=== PATIENT | male | born 1980 | race Caucasian/White ===

== ENCOUNTER 2023-04-28 00:45 | Inpatient (IN) | payer BC, SELFPAY ==
[2023-04-28] VITALS (40 sets, daily range): BP systolic 121–164; BP diastolic 80–110; PULSE 75–102; RESP 14–22; TEMP 36.6–37.7; O2SAT 93–100; BMI 29.5
--- NOTE | ~2023-04-28 | CT_ITS ---
EXAMINATION: CT abdomen pelvis w con DATE: 04/28/2023 02:55 INDICATION: Abdominal pain. Right lower abdomen pain. TECHNIQUE: Computed tomography (CT) of the abdomen and pelvis was performed with 100 cc Omnipaque 350 intravenous contrast. The dose-length product was 927.32 mGy-cm. Automated exposure control and iter ative reconstruction technique were employed. COMPARISON: None. FINDINGS: Lung bases are unremarkable. Heart size normal. No significant pleural or pericardial effus ion. No significant vascular abnormality. No lymphadenopathy. The appendix is thickened measuring 9 mm, suspicious for appendicitis. No evidence for perforation or abscess. The liver, spleen, pancreas, adrenal glands and kidneys are unremarkable. Gallbladder is pr esent. There is thickening of the sigmoid colon without evidence for mild surrounding inflammatory ch mary. There is also pericolonic fluid. These findings are suspicious for diverticulitis with peridive rticular abscess. There is a surgical anastomosis at the ileocolic junction. The liver, spleen, pancreas, adrenal glands and kidneys are unremarkable. Gallbladder is present. No acute osseous abnormality. No free air. IMPRESSION: 1. Acute sigmoid diverticulitis with peridiverticular abscess. 2: Possible acute appendicitis. Reviewed, dictated and finalized at location A.
--- NOTE | ~2023-04-28 | CT_ITS ---
EXAMINATION: CT brain wo con DATE: 05/02/2023 14:22 INDICATION: Worst headache of his life TECHNIQUE: Computed tomography (CT) of the head was performed without intravenous contrast. Sagittal and coronal reconstructions were performed. The mA was adjusted according to patient size. Iterative reconstruction technique was employed. The dose-length product was 681.00 mGy-cm. COMPARISON: None FINDINGS: No acute intracranial hemorrhage, acute infarction or abnormal extra axial fluid collection. Ventricl es are normal and symmetric. No mass/mass effect. Small mucous retention cyst at the right sphenoid s inus. The orbits and mastoid air cells are normal. IMPRESSION: 1. Normal brain. No acute intracranial process. Reviewed, dictated and finalized at location A.
[2023-04-28 01:13] LABS: Appearance Urine Clear (Clear); Basophils Percent Auto 0.6 % (0.2-1.2); Bilirubin Urine Negative (Negative); Blood Urine Negative (Negative); Color Urine Yellow (Yellow); Eosinophils Absolute Auto 0.2 K/mm3 (0-0.3); Eosinophils Percent Auto 2.8 % (0-4.4); Glucose Urine UA Negative (Negative); Hematocrit 52.6 % (42.0-52.0); Hemoglobin 16.7 g/dL (14.0-18.0); Immature Granulocyte Absolute 0.01 K/mm3 (0.00-0.031); Immature Granulocyte Percent A 0.2 % (0-0.5); Ketones Urine Negative (Negative); Leukocyte Esterase Ur Negative LEU/UL (Negative); Lymphocytes Percent Auto 23.6 % (18.3-44.2); Mean Corpuscular HGB Conc 31.7 g/dl (32-36); Mean Platelet Volume 9.9 fl (7.4-10.4); Monocytes Percent Auto 15.4 % (2.6-8.5); Neutrophils Absolute Auto 3.6 K/mm3 (1.3-6.7); Neutrophils Percent Auto 57.4 % (45.5-73.1); Nitrate Urine Negative (Negative); Platelet Count Result 204 k/mm3 (150-375); Protein Urine Negative (Negative); Red Blood Count 6.19 M/mm3 (4.6-6.20); Red Cell Distribution Width 13.5 % (11.5-14.5); Specific Grav Ur 1.016 (1.001-1.035); Urobilinogen Urine 0.2 mg/dL (<2.0); White Blood Count 6.4 K/mm3 (4.5-10.0); pH Urine 5.5 (5.0-9.0)
[2023-04-28 01:28] LABS: Alanine Aminotransferase 30 U/L (6-50); Albumin Level 4.6 g/dL (3.5-5.1); Alkaline Phosphatase 68 U/L (38-126); Anion Gap 7 mmol/L (8-16); Aspartate Amino Transferase 37 U/L (17-59); Bilirubin,Total 1.1 mg/dL (0.2-1.3); Blood Urea Nitrogen 21 mg/dL (9-20); Calcium 9.4 mg/dL (8.4-10.2); Carbon Dioxide 30 mmol/L (22-30); Chloride 100 mmol/L (98-107); Estimated CRCL calculation 78 ml/min; Estimated Glomerular Filt Rate 60; Glucose 106 mg/dL (65-110); Lipase 187 U/L (23-300); Potassium 4.1 mmol/L (3.4-5.0); Sodium 137 mmol/L (137-145)
[2023-04-28 01:30] LABS: Add Urine Microscopic? NO
[2023-04-28] MEDS: MORPHINE SULFATE (*CRX) 4 MG/ML INJ IV PUSH ×2 (01:47→11:26)
[2023-04-28] MEDS: SODIUM CHLORIDE 0.9% IV 1,000 ML 999 ML IV CONT (01:47)
[2023-04-28] MEDS: ONDANSETRON INJ 4 MG/2 ML VIAL IV PUSH ×2 (01:47→12:25)
--- NOTE | 2023-04-28 01:57 | ED.GENADULT ---
HPI - General Adult General Chief complaint: Abdominal Pain Stated complaint: abdominal pain Time Seen by Provider: 04/28/23 01:28 History of Present Illness HPI narrative: Patient 43-year-old gentleman who presents the emergency department with chief complaint of abdominal pain. Patient reports he has prior history of diverticulitis reports that he started having pain in the left lower quadrant that is now radiated to the suprapubic area. The patient states the pain is sharp reports he is concerned that he may be developing diverticulitis. The patient does report that he has had a bowel resection for diverticulitis but has had diverticulitis since the surgery. Related Data Allergies Allergy/AdvReac Type Severity Reaction Status Date / Time No Known Allergies Allergy Verified 04/28/23 04:06 Review of Systems Review of Systems: A 10 system review of systems was completed on the patient and is negative except for what is stated in the HPI. Nursing and ancillary documentation was reviewed. Exam Narrative: GENERAL: Well-appearing, well-nourished, and in moderate acute pain distress. HEAD: Normocephalic, atraumatic. EYES: PERRLA and EOMI. ENT: Nares clear, no rhinorrhea or epistaxis. Mucous membranes moist. NECK: Supple. CHEST: Clear to auscultation. No respiratory distress. HEART: Regular rate and rhythm. No murmur heard. Normal peripheral pulses. ABDOMEN: Soft, tenderness to palpation throughout the abdomen worse in the left lower quadrant and suprapubic., nondistended, normal active bowel sounds. EXTREMITIES: Normal range of motion. No edema. SKIN: Warm, dry, no rash. NEURO: No focal deficits. Alert and oriented x3. PSYCH: Normal mood and affect. Course Vital Signs Vital signs: Vital Signs Temperature 36.6 C 04/28/23 00:47 Pulse Rate 102 H 04/28/23 00:47 Respiratory Rate 16 04/28/23 00:47 Blood Pressure 164/100 H 04/28/23 00:47 Pulse Oximetry 100 04/28/23 00:47 Oxygen Delivery Room Air 04/28/23 00:47 Temperature 36.6 C 04/28/23 00:47 Pulse Rate 87 04/28/23 06:01 Respiratory Rate 18 04/28/23 06:01 Blood Pressure 145/93 H 04/28/23 06:01 Pulse Oximetry 93 04/28/23 06:01 Oxygen Delivery Room Air 04/28/23 00:47 Medical Decision Making Vital Signs Vital Signs: Vital Signs Temperature 36.6 C 04/28/23 00:47 Pulse Rate 102 H 04/28/23 00:47 Respiratory Rate 16 04/28/23 00:47 Blood Pressure 164/100 H 04/28/23 00:47 Pulse Oximetry 100 04/28/23 00:47 Oxygen Delivery Room Air 04/28/23 00:47 Temperature 36.6 C 04/28/23 00:47 Pulse Rate 87 04/28/23 06:01 Respiratory Rate 18 04/28/23 06:01 Blood Pressure 145/93 H 04/28/23 06:01 Pulse Oximetry 93 04/28/23 06:01 Oxygen Delivery Room Air 04/28/23 00:47 Lab Data 04/28/23 01:03 04/28/23 01:03 Labs: Lab Results 04/28/23 Range/Units 01:03 WBC 6.4 (4.5-10.0) K/mm3 RBC 6.19 (4.6-6.20) M/mm3 Hgb 16.7 (14.0-18.0) g/dL Hct 52.6 H (42.0-52.0) % MCV 85.0 (80-100) fl MCH 27.0 (26-34) pg MCHC 31.7 L (32-36) g/dl RDW 13.5 (11.5-14.5) % Plt Count 204 (150-375) k/mm3 MPV 9.9 (7.4-10.4) fl Immature Gran % (Auto) 0.2 (0-0.5) % Neut % (Auto) 57.4 (45.5-73.1) % Lymph % (Auto) 23.6 (18.3-44.2) % [place] % (Auto) 15.4 H (2.6-8.5) % Eos % (Auto) 2.8 (0-4.4) % Baso % (Auto) 0.6 (0.2-1.2) % Lymph # (Auto) 1.50 (0.9-3.2) K/mm3 [place] # (Auto) 1.0 H (0.1-0.6) K/mm3 Eos # (Auto) 0.2 (0-0.3) K/mm3 Baso # (Auto) 0.0 (0.0-0.1) K/mm3 Abs Immat Gran (auto) 0.01 (0.00-0.031) K/mm3 Absolute Neuts (auto) 3.6 (1.3-6.7) K/mm3 Absolute Nucleated RBC 0.0 (0.0-0.012) K/mm3 Nucleated RBC % 0.0 (0.0-0.2) % Sodium 137 (137-145) mmol/L Potassium 4.1 (3.4-5.0) mmol/L Chloride 100 (98-107) mmol/L Carbon Dioxide 30 (22-30) mmol/L Anion Gap 7 L (8-16) mmol/L BUN 21 H (9-20) mg/dL Crea
[2023-04-28] MEDS: ACETAMINOPHEN 500 MG TABLET 1000 MG PO (06:41)
--- NOTE | 2023-04-28 06:44 | PC.NURSE ---
Pt c/o headache 8/10 at this time. Ok per Dr England to give Tylenol. Pt agreeable with plan. Reports abd pain now 5/10, unless abd touched then is 8/10
[2023-04-28] MEDS: PIPERACILLN/TAZ 3.375GM/NS50ML 3.375 GM/50 ML BAG IVPB ×3 (07:01→17:38)
--- NOTE | 2023-04-28 07:10 | PC.NURSE ---
Report to FLOR Carter
[2023-04-28] MEDS: metroNIDAZOLE 500 MG/ISO 100ML 500 MG/100 ML BAG 100 MG IVPB ×3 (07:27→17:38)
[2023-04-28] MEDS: SODIUM CHLORIDE 0.9% IV 1,000 ML 125 ML IV CONT (09:47)
--- NOTE | 2023-04-28 12:36 | PM.IMHP ---
H&P: HPI History of Present Illness Date/Time: 04/28/23 12:36 Chief Complaint: Abdominal pain Narrative: Patient 43-year-old gentleman who presents the emergency department with chief complaint of abdominal pain.? Patient reports he has prior history of diverticulitis reports that he started having pain in the left lower quadrant that is now radiated to the right lower quadrant and since this a.m. has been diffusely present. Was feeling feverish but no recorded temperature. Reports chills and some rigors he also had some nausea and vomiting yesterday. He has a history of sigmoid diverticulitis and had surgery in June 2022 Review of Systems Review of Systems: - CONSTITUTIONAL: Denies weight loss, fever and reports chills. - HEENT: Denies changes in vision and hearing - RESPIRATORY: Denies SOB and cough. - CV: Denies palpitations and CP. - GI: See HPI - : Denies dysuria and urinary frequency. - MSK: Denies myalgia and joint pain. - SKIN: Denies rash and pruritus. - NEUROLOGICAL: Denies headache and syncope. - PSYCHIATRIC: Denies recent changes in mood. Denies anxiety and depression. [facility] Social History Social History Smoking status: Former smoker Alcohol intake: never Substance use: never Lack of Transportation: No Lack of Food: Never True Current Housing: I Have Housing Concerned About Future Housing: No Difficulty Paying Gas/Electric Bills: No Difficulty Paying for Meds: No Currently Unemployed: No Education: High School Diploma/GED Difficulty w/ Childcare or Family Care: No Spiritual care concerns: No Meds Home Medications and Allergies Home Medications Medication Instructions Recorded Confirmed Type acetaminophen 500 mg tablet (Pain 500 mg PO PRN PRN Pain (Scale 04/28/23 04/28/23 History Reliever Extra Strength Score 1-3) (acetaminophen)) ibuprofen 600 mg tablet 600 mg PO PRN PRN Pain (Scale 04/28/23 04/28/23 History Score 1-3) meloxicam 15 mg tablet 15 mg PO DAILY 04/28/23 04/28/23 History omeprazole 40 mg capsule,delayed 40 mg PO DAILY 04/28/23 04/28/23 History release Allergies Allergy/AdvReac Type Severity Reaction Status Date / Time No Known Allergies Allergy Verified 04/28/23 04:06 Vital Signs Vital Signs - 24 hr 04/28/23 00:47 04/28/23 01:52 04/28/23 01:53 Temperature 97.9 F Pulse Rate 102 H Respiratory Rate 16 Blood Pressure 164/100 H Pulse Oximetry 100 98 99 Oxygen Delivery Room Air 04/28/23 02:00 04/28/23 02:01 04/28/23 02:02 Temperature Pulse Rate Respiratory Rate 22 H Blood Pressure 134/86 Pulse Oximetry 94 97 96 Oxygen Delivery 04/28/23 02:15 04/28/23 02:16 04/28/23 02:31 Temperature Pulse Rate Respiratory Rate Blood Pressure 147/93 H 156/110 H Pulse Oximetry 99 97 Oxygen Delivery 04/28/23 02:55 04/28/23 03:00 04/28/23 03:15 Temperature Pulse Rate Respiratory Rate Blood Pressure Pulse Oximetry 97 98 95 Oxygen Delivery 04/28/23 03:20 04/28/23 03:31 04/28/23 03:39 Temperature Pulse Rate Respiratory Rate Blood Pressure 138/100 H 158/101 H Pulse Oximetry 96 Oxygen Delivery 04/28/23 03:45 04/28/23 03:46 04/28/23 04:00 Temperature Pulse Rate Respiratory Rate Blood Pressure 156/99 H Pulse Oximetry 95 95 94 Oxygen Delivery 04/28/23 04:01 04/28/23 04:15 04/28/23 04:16 Temperature Pulse Rate Respiratory Rate Blood Pressure 155/99 H 152/92 H Pulse Oximetry 95 95 96 Oxygen Delivery 04/28/23 04:30 04/28/23 04:31 04/28/23 04:45 Temperature Pulse Rate Respiratory Rate Blood Pressure 149/94 H Pulse Oximetry 97 96 96 Oxygen Delivery 04/28/23 04:46 04/28/23 04:48 04/28/23 05:00 Temperature Pulse Rate 75 Respiratory Rate 14 Blood Pressure 153/95 H Pulse Oximetry 96 94 97 Oxyg
[2023-04-28] MEDS: PANTOPRAZOLE SODIUM IV 40 MG VIAL IV PUSH (12:52)
[2023-04-28] MEDS: HYDROmorphone HCL INJ (*CRX) 1 MG/ML SYR IV PUSH ×2 (12:52→17:38)
[2023-04-28 13:19] LABS: Basophils Percent Auto 0.2 % (0.2-1.2); Eosinophils Percent Auto 0.2 % (0-4.4); Hematocrit 52.2 % (42.0-52.0); Hemoglobin 17.4 g/dL (14.0-18.0); Immature Granulocyte Absolute 0.04 K/mm3 (0.00-0.031); Immature Granulocyte Percent A 0.4 % (0-0.5); Immature Platelet Fraction Pct 4.1 % (0.9-11.2); Lymphocytes Absolute Auto 1.29 K/mm3 (0.9-3.2); Lymphocytes Percent Auto 12.6 % (18.3-44.2); Mean Corpuscular HGB Conc 33.3 g/dl (32-36); Mean Corpuscular Hemoglobin 28.9 pg (26-34); Mean Corpuscular Volume 86.6 fl (80-100); Mean Platelet Volume 11.1 fl (7.4-10.4); Monocytes Absolute Auto 0.9 K/mm3 (0.1-0.6); Monocytes Percent Auto 9.1 % (2.6-8.5); Neutrophils Absolute Auto 7.9 K/mm3 (1.3-6.7); Neutrophils Percent Auto 77.5 % (45.5-73.1); Platelet Count Result 96 k/mm3 (150-375); Red Blood Count 6.03 M/mm3 (4.6-6.20); Red Cell Distribution Width 13.6 % (11.5-14.5); White Blood Count 10.2 K/mm3 (4.5-10.0)
[2023-04-28 13:29] LABS: Alanine Aminotransferase 28 U/L (6-50); Albumin Level 4.1 g/dL (3.5-5.1); Alkaline Phosphatase 64 U/L (38-126); Anion Gap 7 mmol/L (8-16); Aspartate Amino Transferase 31 U/L (17-59); Bilirubin,Total 1.3 mg/dL (0.2-1.3); Blood Urea Nitrogen 13 mg/dL (9-20); Calcium 8.8 mg/dL (8.4-10.2); Carbon Dioxide 23 mmol/L (22-30); Chloride 106 mmol/L (98-107); Estimated CRCL calculation 92 ml/min; Estimated Glomerular Filt Rate > 60; Glucose 85 mg/dL (65-110); Potassium 4.3 mmol/L (3.4-5.0); Sodium 136 mmol/L (137-145)
[2023-04-28 13:48] LABS: Lactic Acid Reflex 1.7 mmol/L (0.7-2.0)
--- NOTE | 2023-04-28 15:03 | WPDCN ---
Assessment and Plan Assessment and plan (1) Acute diverticulitis: Code(s): K57.92 - Diverticulitis of intestine, part unspecified, without perforation or abscess without bleeding Status: Acute Assessment and Plan: Patient has prior history of diverticulitis and history of resection about 11 months ago at [facility]. CT scan today shows thickening of the sigmoid colon with some fluid around the area suggestive of recurrent sigmoid diverticulitis. Also seen on CT scans a dilated appendix to 9mm but no periappendiceal inflammation. For now he is being treated with IV antibiotics and bowel rest. Will do serial abdominal exams. IV pain medicines have been changed to Dilaudid seems to work better for the patient than the IV morphine. (2) Appendicitis: Code(s): K37 - Unspecified appendicitis Status: Acute Assessment and Plan: It is difficult to tell whether the patient has an abnormal appearing appendix due to the recurrent sigmoid diverticulitis versus having acute appendicitis in addition to recurrent sigmoid diverticulitis. At this point continued IV antibiotics and observation is indicated. If the white blood cell count continues to increase or spikes a fever and his pain is continuing to be localized right lower quadrant of the abdomen then repeat CT scan could be considered versus proceeding to the operating room for a diagnostic laparoscopy and possible laparoscopic appendectomy. HPI Data of Consult Date/Time: 04/28/23 15:03 Requesting Physician: Bruno De Paz MD Primary Care Provider: PHYSICIAN NOT ON STAFF Consult Narrative Reason for consult: Lower abdominal pain, recurrent sigmoid diverticulitis, possible appendicit Narrative: Brendan Wilson is a 43 year old male admitted through the emergency room early this morning complaining of severe lower abdominal pain which started most as left side but is now was a bit more prominent on the right side of the abdomen. He has had a prior history of multiple episodes of diverticulitis in the past and underwent a sigmoid resection at [facility] in June 2022. On admission his white blood cell count was 6000 and normal but repeat this morning shows it to be slightly elevated 10,200. CT scan abdomen pelvis showed thickening of the sigmoid colon suggestive of possible recurrent diverticulitis with some fluid around the sigmoid colon. There was also abnormal enlargement of the appendix up to 9mm in diameter but no periappendiceal inflammation in the surrounding adipose tissue. No free air or abscess was noted. This afternoon his pain is about the same as it was this morning. His IV pain medications got switch from morphine to Dilaudid which has provided him better pain management. Review of Systems Review of Systems: The remainder of the review of systems to include constitutional, HEENT, cardiovascular, respiratory, GI, , integumentary, musculoskeletal, endocrine, immunologic, hematologic, psychiatric, and neurologic are all negative except for which is mentioned above in the HPI. [facility] Social History Social History Smoking status: Former smoker Alcohol intake: never Substance use: never Lack of Transportation: No Lack of Food: Never True Current Housing: I Have Housing Concerned About Future Housing: No Difficulty Paying Gas/Electric Bills: No Difficulty Paying for Meds: No Currently Unemployed: No Education: High School Diploma/GED Difficulty w/ Childcare or Family Care: No Spiritual care concerns: No Meds Home Medications and Allergies Home Medications Medication Instructions Recorded Confirmed Type acetaminophen 500 mg tablet (Pain 500 mg PO PRN PRN Pain (Scale 04/28/23 04/28/23 History Reliever Extra Strength Score 1-3) (acetaminophen)) ibuprofen 600 mg tablet 600 mg PO PRN PRN Pain (Scale 04/28/23 04/28/23 Hist
[2023-04-29] MEDS: HYDROmorphone HCL INJ (*CRX) 1 MG/ML SYR IV PUSH ×4 (00:14→23:53)
[2023-04-29] MEDS: PIPERACILLN/TAZ 3.375GM/NS50ML 3.375 GM/50 ML BAG IVPB ×5 (00:15→23:53)
[2023-04-29] MEDS: SODIUM CHLORIDE 0.9% IV 1,000 ML 125 ML IV CONT ×2 (00:29→08:26)
[2023-04-29] MEDS: metroNIDAZOLE 500 MG/ISO 100ML 500 MG/100 ML BAG 100 MG IVPB ×4 (00:56→17:02)
[2023-04-29 06:00] VITALS: BP 135/82; PULSE 93; RESP 18; TEMP 36.9; O2SAT 96
[2023-04-29 06:31] LABS: Basophils Percent Auto 0.5 % (0.2-1.2); Eosinophils Absolute Auto 0.1 K/mm3 (0-0.3); Eosinophils Percent Auto 1.3 % (0-4.4); Hematocrit 45.7 % (42.0-52.0); Hemoglobin 14.2 g/dL (14.0-18.0); Immature Granulocyte Absolute 0.01 K/mm3 (0.00-0.031); Immature Granulocyte Percent A 0.2 % (0-0.5); Lymphocytes Absolute Auto 0.84 K/mm3 (0.9-3.2); Lymphocytes Percent Auto 13.4 % (18.3-44.2); Mean Corpuscular HGB Conc 31.1 g/dl (32-36); Mean Corpuscular Hemoglobin 26.9 pg (26-34); Mean Corpuscular Volume 86.7 fl (80-100); Mean Platelet Volume 10.1 fl (7.4-10.4); Monocytes Absolute Auto 0.8 K/mm3 (0.1-0.6); Monocytes Percent Auto 12.8 % (2.6-8.5); Neutrophils Absolute Auto 4.5 K/mm3 (1.3-6.7); Neutrophils Percent Auto 71.8 % (45.5-73.1); Platelet Count Result 108 k/mm3 (150-375); Red Blood Count 5.27 M/mm3 (4.6-6.20); Red Cell Distribution Width 13.4 % (11.5-14.5); White Blood Count 6.3 K/mm3 (4.5-10.0)
[2023-04-29 06:50] LABS: Alanine Aminotransferase 33 U/L (6-50); Albumin Level 3.6 g/dL (3.5-5.1); Alkaline Phosphatase 62 U/L (38-126); Anion Gap 7 mmol/L (8-16); Aspartate Amino Transferase 29 U/L (17-59); Blood Urea Nitrogen 13 mg/dL (9-20); Calcium 8.3 mg/dL (8.4-10.2); Carbon Dioxide 25 mmol/L (22-30); Chloride 103 mmol/L (98-107); Estimated CRCL calculation 78 ml/min; Estimated Glomerular Filt Rate 60; Glucose 80 mg/dL (65-110); Magnesium 1.9 mg/dL (1.6-2.3); Potassium 3.8 mmol/L (3.4-5.0); Sodium 135 mmol/L (137-145)
[2023-04-29 07:48] VITALS: O2SAT 96
[2023-04-29] MEDS: PANTOPRAZOLE SODIUM IV 40 MG VIAL IV PUSH (08:29)
--- NOTE | 2023-04-29 11:08 | PM.PNGS ---
Progress Note: A&P Assessment and Plan (1) Acute diverticulitis: Code(s): K57.92 - Diverticulitis of intestine, part unspecified, without perforation or abscess without bleeding Status: Acute Assessment and Plan: I reviewed the CT scan today with the radiologist and there is only a small fluid collection around the old staple line. There is also some very subtle stranding in the area which could be postoperative changes since his sigmoid resection was only 9 to 10 months ago. For now will continue non operative management with IV antibiotics. I think I can go ahead start him on some clear liquids today. The small fluid collection is not significant enough to try to drain. (2) Appendicitis: Code(s): K37 - Unspecified appendicitis Status: Acute Assessment and Plan: Patient is less right lower quadrant pain today. White blood count is normalized 6300. CT scan shows some contrast material within the appendix and the patient stated he had a water-soluble contrast enema about 2 months ago. There is no appendicoliths and no periappendiceal inflammation. Appendix is dilated to 9mm. At this point is clinically improving on IV antibiotics. I did discuss with him a diagnostic laparoscopy liquids appendix but since he is improving we will continue non operative management if he does have mild acute appendicitis then hopefully IV antibiotics will resolve the inflammation. I did discuss with him the approximate 40% failure rate non operative management for acute appendicitis at 1 year. He understands and continues to want to proceed with nonoperative management at this time. Subjective Subjective Date/Time Seen: 04/29/23 11:08 Interval history: Patient states he has less abdominal pain today but it is still mild to moderate. Pain is more in the suprapubic area and less so on the right lower quadrant today. Passing flatus but no bowel movements. No fever. White blood cell count is decreased to normal levels at 6300 with no left shift. Exam GI: Other: Abdomen is soft and nondistended. Mild tenderness to palpation in the suprapubic region and right lower quadrant. No rebound tenderness is noted. Objective Data Vital Signs Vital Signs: Vital Signs - 24 hr 04/28/23 14:00 04/28/23 20:39 04/28/23 20:00 Temperature 37.7 C H 37.2 C Pulse Rate 92 Respiratory Rate 20 Blood Pressure 155/81 H Pulse Oximetry 94 94 Oxygen Delivery Room Air 04/28/23 21:19 04/29/23 06:00 04/29/23 07:48 Temperature 37.2 C 36.9 C Pulse Rate 92 93 Respiratory Rate 16 18 Blood Pressure 142/83 H 135/82 Pulse Oximetry 96 96 96 Oxygen Delivery Room Air 04/29/23 08:25 Temperature Pulse Rate Respiratory Rate Blood Pressure Pulse Oximetry Oxygen Delivery Room Air Intake/Output Intake/Output: Intake & Output 04/26/23 04/27/23 04/28/23 04/29/23 23:59 23:59 23:59 23:59 Intake Total 1450 1999 Output Total 875 400 Balance 575 1600 Meds/Results Medications: Active Medications Generic Name Dose Route Start Last Admin Trade Name Freq PRN Reason Stop Dose Admin Hydromorphone HCl 1 mg 04/28/23 14:50 04/29/23 00:14 Hydromorphone Hcl Inj (*Crx) 1 Mg/Ml Syr IV PUSH 1 mg Q2H PRN Administration Pain Rated 7-10 Metronidazole 500 mg in 100 mls @ 100 mls/hr 04/28/23 12:00 04/29/23 07:38 Flagyl 500 Mg/Iso Soln 100 Ml IVPB Infused Q6HR L[facility]LEY Infusion Piperacillin/Tazobactam/Dextrose 3.375 gm in 50 mls @ 100 mls/hr 04/28/23 12:00 04/29/23 05:34 Zosyn 3.375 Gm/Ns 50 Ml IVPB Infused Q6HR [facility] Infusion Sodium Chloride 1,000 mls @ 90 mls/hr 04/28/23 06:20 04/29/23 08:26 Normal Saline Iv IV CONT 125 mls/hr .[id number] LESLEY Administration Ondansetron HCl 4 mg 04/28/23 06:19 04/28/23 12:25 Ondansetron Inj 4 Mg/2 Ml Vial IV PUSH 4 mg Q4H PRN Administration Nausea Pantoprazole Sodium 40 mg 04/28/23 12:45 04/29/23 08:29 Pant
[2023-04-29 12:00] VITALS: BP 170/98; PULSE 89; RESP 18; TEMP 37; O2SAT 99
--- NOTE | 2023-04-29 12:21 | PM.IMPN ---
Progress Note: A&P Assessment and Plan (1) Acute diverticulitis: Code(s): K57.92 - Diverticulitis of intestine, part unspecified, without perforation or abscess without bleeding Status: Acute (2) Appendicitis: Code(s): K37 - Unspecified appendicitis Status: Acute (3) Colonic diverticular abscess: Code(s): K57.20 - Diverticulitis of large intestine with perforation and abscess without bleeding Status: Acute Plan Acute sigmoid diverticulitis with peridiverticular abscess IV antibiotics with Zosyn and metronidazole. NPO. Diet per General surgery Possible acute appendicitis with appendix thickened measuring 9 mm. Suspect acute appendicitis. Discussed with General surgery. For general surgeon History of diverticulitis in the past status post surgery June 2022 DVT prophylaxis SCDs Code status full code Subjective Date/time seen: 04/29/23 12:21 Interval history: Still has pain. Better with pain medication. Remains afebrile. On clear liquid diet as ordered by General surgery. Review of Systems Review of Systems: All systems reviewed & are unremarkable except as noted in HPI and below Exam Narrative: GENERAL: Well-appearing, well-nourished, and in acute distress. HEAD: Normocephalic, atraumatic. EYES: PERRLA and EOMI. ENT: Nares clear, no rhinorrhea or epistaxis.? Mucous membranes moist. NECK: Supple. CHEST: Clear to auscultation.? No respiratory distress. HEART: Regular rate and rhythm.? No murmur heard.? Normal peripheral pulses. ABDOMEN: Soft, tenderness to palpation throughout the abdomen worse in the right lower quadrant and suprapubic., EXTREMITIES: Normal range of motion.? No edema. SKIN: Warm, dry, no rash. NEURO: No focal deficits.? Alert and oriented x3. PSYCH: Normal mood and affect Objective Data Vital Signs Vital Signs: Vital Signs - 24 hr 04/28/23 14:00 04/28/23 20:39 04/28/23 20:00 Temperature 99.8 F H 99 F Pulse Rate 92 Respiratory Rate 20 Blood Pressure 155/81 H Pulse Oximetry 94 94 Oxygen Delivery Room Air 04/28/23 21:19 04/29/23 06:00 04/29/23 07:48 Temperature 99.0 F 98.4 F Pulse Rate 92 93 Respiratory Rate 16 18 Blood Pressure 142/83 H 135/82 Pulse Oximetry 96 96 96 Oxygen Delivery Room Air 04/29/23 08:25 04/29/23 12:00 Temperature 98.6 F Pulse Rate 89 Respiratory Rate 18 Blood Pressure 170/98 H Pulse Oximetry 99 Oxygen Delivery Room Air Intake/Output Intake/Output: Intake & Output 04/26/23 04/27/23 04/28/23 04/29/23 23:59 23:59 23:59 23:59 Intake Total 1450 2050 Output Total 875 400 Balance 575 1650 Meds/Results Medications: Active Medications Generic Name Dose Route Start Last Admin Trade Name Freq PRN Reason Stop Dose Admin Hydromorphone HCl 1 mg 04/28/23 14:50 04/29/23 12:08 Hydromorphone Hcl Inj (*Crx) 1 Mg/Ml Syr IV PUSH 1 mg Q2H PRN Administration Pain Rated 7-10 Metronidazole 500 mg in 100 mls @ 100 mls/hr 04/28/23 12:00 04/29/23 12:10 Flagyl 500 Mg/Iso Soln 100 Ml IVPB 100 mls/hr Q6HR [facility] Infusion Piperacillin/Tazobactam/Dextrose 3.375 gm in 50 mls @ 100 mls/hr 04/28/23 12:00 04/29/23 12:09 Zosyn 3.375 Gm/Ns 50 Ml IVPB Infused Q6HR [facility] Infusion Sodium Chloride 1,000 mls @ 90 mls/hr 04/28/23 06:20 04/29/23 11:37 Normal Saline Iv IV CONT 0 mls/hr .Q11H7M [facility] Infusion Ondansetron HCl 4 mg 04/28/23 06:19 04/28/23 12:25 Ondansetron Inj 4 Mg/2 Ml Vial IV PUSH 4 mg Q4H PRN Administration Nausea Pantoprazole Sodium 40 mg 04/28/23 12:45 04/29/23 08:29 Pantoprazole Sodium Iv 40 Mg Vial IV PUSH 40 mg QAM L[facility]LEY Administration Radiology Results: ITS Impressions Abdomen/Pelvis CT 04/28/23 05:51 IMPRESSION: 1. Acute sigmoid diverticulitis with peridiverticular abscess. 2: Possible acute appendicitis. Labs Labs: Laboratory Results - last 24 hr 04/28/23 04/28/23 04/29/23 13:09
[2023-04-29 16:00] VITALS: BP 160/70; PULSE 98; RESP 18; TEMP 37.1; O2SAT 96
[2023-04-29] MEDS: ONDANSETRON INJ 4 MG/2 ML VIAL IV PUSH ×2 (17:01→23:53)
[2023-04-29 20:00] VITALS: BP 147/88; PULSE 98; RESP 18; TEMP 36.9; O2SAT 97
[2023-04-29] MEDS: SODIUM CHLORIDE 0.9% IV 1,000 ML 90 ML IV CONT (21:34)
[2023-04-29 23:50] VITALS: BP 157/93; PULSE 97; RESP 20; TEMP 37; O2SAT 96
[2023-04-30] MEDS: metroNIDAZOLE 500 MG/ISO 100ML 500 MG/100 ML BAG 100 MG IVPB ×3 (00:23→12:37)
[2023-04-30 04:00] VITALS: BP 147/88; PULSE 87; RESP 16; TEMP 36.6; O2SAT 99
[2023-04-30] MEDS: PIPERACILLN/TAZ 3.375GM/NS50ML 3.375 GM/50 ML BAG IVPB ×4 (05:00→23:36)
[2023-04-30 06:31] LABS: Basophils Percent Auto 0.3 % (0.2-1.2); Eosinophils Absolute Auto 0.1 K/mm3 (0-0.3); Hematocrit 45.9 % (42.0-52.0); Hemoglobin 14.3 g/dL (14.0-18.0); Immature Granulocyte Absolute 0.02 K/mm3 (0.00-0.031); Immature Granulocyte Percent A 0.3 % (0-0.5); Lymphocytes Absolute Auto 0.91 K/mm3 (0.9-3.2); Lymphocytes Percent Auto 14.8 % (18.3-44.2); Mean Corpuscular HGB Conc 31.2 g/dl (32-36); Mean Corpuscular Hemoglobin 26.8 pg (26-34); Mean Platelet Volume 10.4 fl (7.4-10.4); Monocytes Absolute Auto 0.8 K/mm3 (0.1-0.6); Neutrophils Absolute Auto 4.3 K/mm3 (1.3-6.7); Neutrophils Percent Auto 70.6 % (45.5-73.1); Platelet Count Result 122 k/mm3 (150-375); Red Blood Count 5.34 M/mm3 (4.6-6.20); Red Cell Distribution Width 13.2 % (11.5-14.5); White Blood Count 6.1 K/mm3 (4.5-10.0)
[2023-04-30 06:41] LABS: Anion Gap 8 mmol/L (8-16); Blood Urea Nitrogen 7 mg/dL (9-20); Calcium 8.4 mg/dL (8.4-10.2); Carbon Dioxide 24 mmol/L (22-30); Chloride 103 mmol/L (98-107); Estimated CRCL calculation 101 ml/min; Estimated Glomerular Filt Rate > 60; Glucose 75 mg/dL (65-110); Potassium 3.8 mmol/L (3.4-5.0); Sodium 135 mmol/L (137-145)
[2023-04-30 08:00] VITALS: BP 158/79; PULSE 92; RESP 16; TEMP 37.2; O2SAT 97
[2023-04-30] MEDS: PANTOPRAZOLE SODIUM IV 40 MG VIAL IV PUSH (08:28)
--- NOTE | 2023-04-30 10:44 | PM.IMPN ---
Progress Note: A&P Assessment and Plan (1) Acute diverticulitis: Code(s): K57.92 - Diverticulitis of intestine, part unspecified, without perforation or abscess without bleeding Status: Acute (2) Appendicitis: Code(s): K37 - Unspecified appendicitis Status: Acute (3) Colonic diverticular abscess: Code(s): K57.20 - Diverticulitis of large intestine with perforation and abscess without bleeding Status: Acute Plan Acute sigmoid diverticulitis with peridiverticular abscess IV antibiotics with Zosyn and metronidazole. NPO. Diet per General surgery Possible acute appendicitis with appendix thickened measuring 9 mm. Suspect acute appendicitis. Discussed with General surgery. continues to improve on clear liquid diet . further advancement of the diet per General surgery. History of diverticulitis in the past status post surgery June 2022 DVT prophylaxis SCDs Code status full code Subjective Date/time seen: 04/30/23 10:44 Interval history: Feeling better. Pain is much less. On clear liquid diet which she is tolerating well. Remains on IV antibiotics. IV fluids ongoing. Review of Systems Review of Systems: All systems reviewed & are unremarkable except as noted in HPI and below Exam Narrative: GENERAL: Well-appearing, well-nourished, and in acute distress. HEAD: Normocephalic, atraumatic. EYES: PERRLA and EOMI. ENT: Nares clear, no rhinorrhea or epistaxis.? Mucous membranes moist. NECK: Supple. CHEST: Clear to auscultation.? No respiratory distress. HEART: Regular rate and rhythm.? No murmur heard.? Normal peripheral pulses. ABDOMEN: Soft, Very mild tenderness to palpation throughout the abdomen in the right lower quadrant and suprapubic., EXTREMITIES: Normal range of motion.? No edema. SKIN: Warm, dry, no rash. NEURO: No focal deficits.? Alert and oriented x3. PSYCH: Normal mood and affect Objective Data Vital Signs Vital Signs: Vital Signs - 24 hr 04/29/23 12:00 04/29/23 16:00 04/29/23 20:00 Temperature 98.6 F 98.7 F 98.5 F Pulse Rate 89 98 98 Respiratory Rate 18 18 18 Blood Pressure 170/98 H 160/70 H 147/88 H Pulse Oximetry 99 96 97 Oxygen Delivery 04/29/23 20:00 04/29/23 23:50 04/30/23 04:00 Temperature 98.6 F 97.9 F Pulse Rate 97 87 Respiratory Rate 20 16 Blood Pressure 157/93 H 147/88 H Pulse Oximetry 97 96 99 Oxygen Delivery Room Air 04/30/23 08:00 04/30/23 08:30 Temperature 98.9 F Pulse Rate 92 Respiratory Rate 16 Blood Pressure 158/79 H Pulse Oximetry 97 Oxygen Delivery Room Air Intake/Output Intake/Output: Intake & Output 04/27/23 04/28/23 04/29/23 04/30/23 23:59 23:59 23:59 23:59 Intake Total 1450 3536 468 Output Total 875 400 Balance 575 3136 468 Meds/Results Medications: Active Medications Generic Name Dose Route Start Last Admin Trade Name Freq PRN Reason Stop Dose Admin Hydromorphone HCl 1 mg 04/28/23 14:50 04/29/23 23:53 Hydromorphone Hcl Inj (*Crx) 1 Mg/Ml Syr IV PUSH 1 mg Q2H PRN Administration Pain Rated 7-10 Metronidazole 500 mg in 100 mls @ 100 mls/hr 04/28/23 12:00 04/30/23 07:26 Flagyl 500 Mg/Iso Soln 100 Ml IVPB Infused Q6HR L[facility]LEY Infusion Piperacillin/Tazobactam/Dextrose 3.375 gm in 50 mls @ 100 mls/hr 04/28/23 12:00 04/30/23 05:30 Zosyn 3.375 Gm/Ns 50 Ml IVPB Infused Q6HR L[facility] Infusion Sodium Chloride 1,000 mls @ 90 mls/hr 04/28/23 06:20 04/29/23 21:34 Normal Saline Iv IV CONT 90 mls/hr .Q11H7M L[facility] Administration Ondansetron HCl 4 mg 04/28/23 06:19 04/29/23 23:53 Ondansetron Inj 4 Mg/2 Ml Vial IV PUSH 4 mg Q4H PRN Administration Nausea Pantoprazole Sodium 40 mg 04/28/23 12:45 04/30/23 08:28 Pantoprazole Sodium Iv 40 Mg Vial IV PUSH 40 mg QAM L[facility]LEY Administration Radiology Results: ITS Impressions Abdomen/Pelvis CT 04/28/23 05:51 IMPRESSION: 1. Acute sigmoid diverticulitis with peridiverticular
[2023-04-30] MEDS: SODIUM CHLORIDE 0.9% IV 1,000 ML 90 ML IV CONT (12:06)
--- NOTE | 2023-04-30 13:03 | PM.PNGS ---
Progress Note: A&P Assessment and Plan (1) Acute diverticulitis: Code(s): K57.92 - Diverticulitis of intestine, part unspecified, without perforation or abscess without bleeding Status: Acute Assessment and Plan: Clinically improving. WBC normal. Abdominal pain and tenderness continues to improve. Continue IV antibiotics. Will advance to full liquids. Try to transition to oral analgesics. (2) Appendicitis: Code(s): K37 - Unspecified appendicitis Status: Acute Assessment and Plan: CT scan showed an appendix dilated to 9 mm with contrast material within the appendix, but no periappendiceal inflammation or appendicolith. Patient wished to continue with nonoperative treatment with IV antibiotics, as he is clinically improving. Continue IV antibiotics and monitor. Plan I have discussed the patient's case and plan of care with Dr. Leonardo. Subjective Subjective Date/Time Seen: 04/30/23 13:03 Patient reports: no new complaints, feels better, pain is less, tolerating liquids well, flatus, bowel movement and afebrile Interval history: This is a 43-year-old man with a history of a sigmoid colon resection for diverticulitis, who presented to the ER with abdominal pain. Workup showed CT evidence of inflammation and fluid around the area of the colonic anastomosis with a small tavo diverticular abscess and AA mildly thickened appendix measuring 9 mm. He was admitted and started on IV antibiotics. Chart reviewed. White blood cell count normalized. He is seen on the medical floor. He reports his abdominal pain continues to improve. His abdominal pain is better than yesterday. He denies nausea or vomiting, but feels bloated. He is tolerating clear liquids. No other complaints at this time. Exam Const: General: comfortable and no acute distress GI: Inspection: other (mildly distended) GI Palp: Yes Soft to palpation, Yes Tenderness to palpation present (GI) (tender across the lower abdomen most focally in the mid to RLQ), Yes Guarding due to palpation present (GI) (LLQ and RLQ) and Yes Other GI palpation findings present (no diffuse peritoneal signs) Auscultation: normal bowel sounds Objective Data Vital Signs Vital Signs: Vital Signs - 24 hr 04/29/23 16:00 04/29/23 20:00 04/29/23 20:00 Temperature 98.7 F 98.5 F Pulse Rate 98 98 Respiratory Rate 18 18 Blood Pressure 160/70 H 147/88 H Pulse Oximetry 96 97 97 Oxygen Delivery Room Air 04/29/23 23:50 04/30/23 04:00 04/30/23 08:00 Temperature 98.6 F 97.9 F 98.9 F Pulse Rate 97 87 92 Respiratory Rate 20 16 16 Blood Pressure 157/93 H 147/88 H 158/79 H Pulse Oximetry 96 99 97 Oxygen Delivery 04/30/23 08:30 Temperature Pulse Rate Respiratory Rate Blood Pressure Pulse Oximetry Oxygen Delivery Room Air Intake/Output Intake/Output: Intake & Output 04/27/23 04/28/23 04/29/23 04/30/23 23:59 23:59 23:59 23:59 Intake Total 1450 3536 1468 Output Total 875 400 Balance 575 3136 1468 Meds/Results Medications: Active Medications Generic Name Dose Route Start Last Admin Trade Name Freq PRN Reason Stop Dose Admin Hydromorphone HCl 1 mg 04/28/23 14:50 04/29/23 23:53 Hydromorphone Hcl Inj (*Crx) 1 Mg/Ml Syr IV PUSH 1 mg Q2H PRN Administration Pain Rated 7-10 Metronidazole 500 mg in 100 mls @ 100 mls/hr 04/28/23 12:00 04/30/23 12:37 Flagyl 500 Mg/Iso Soln 100 Ml IVPB 100 mls/hr Q6HR [facility] Administration Piperacillin/Tazobactam/Dextrose 3.375 gm in 50 mls @ 100 mls/hr 04/28/23 12:00 04/30/23 12:05 Zosyn 3.375 Gm/Ns 50 Ml IVPB 100 mls/hr Q6HR [facility] Administration Sodium Chloride 1,000 mls @ 90 mls/hr 04/28/23 06:20 04/30/23 12:06 Normal Saline Iv IV CONT 90 mls/hr .Q11H7M [facility] Administration Ondansetron HCl 4 mg 04/28/23 06:19 04/29/23 23:53 Ondansetron Inj 4 Mg/2 Ml Vial IV PUSH 4 mg Q4H PRN Administration Nausea Pantoprazole Sodium 40 mg
[2023-04-30 14:00] VITALS: BP 129/87; PULSE 83; RESP 18; TEMP 36.8; O2SAT 98
[2023-04-30] MEDS: ACETAMINOPHEN 325 MG TABLET 650 MG PO (17:58)
[2023-04-30] MEDS: ONDANSETRON INJ 4 MG/2 ML VIAL IV PUSH (18:02)
[2023-04-30 22:00] VITALS: BP 138/86; PULSE 66; RESP 18; TEMP 37.2; O2SAT 98
[2023-04-30] MEDS: metroNIDAZOLE 250 MG TABLET 500 MG PO (22:13)
[2023-05-01] MEDS: SODIUM CHLORIDE 0.9% IV 1,000 ML 90 ML IV CONT (03:45)
[2023-05-01 05:45] VITALS: BP 139/85; PULSE 84; RESP 18; TEMP 36.9; O2SAT 97
[2023-05-01] MEDS: metroNIDAZOLE 250 MG TABLET 500 MG PO ×3 (05:59→20:58)
[2023-05-01] MEDS: PIPERACILLN/TAZ 3.375GM/NS50ML 3.375 GM/50 ML BAG IVPB ×3 (06:00→17:18)
[2023-05-01 06:57] LABS: Basophils Percent Auto 0.4 % (0.2-1.2); Eosinophils Absolute Auto 0.1 K/mm3 (0-0.3); Eosinophils Percent Auto 1.7 % (0-4.4); Hematocrit 45.1 % (42.0-52.0); Hemoglobin 14.2 g/dL (14.0-18.0); Immature Granulocyte Absolute 0.02 K/mm3 (0.00-0.031); Immature Granulocyte Percent A 0.4 % (0-0.5); Lymphocytes Absolute Auto 1.03 K/mm3 (0.9-3.2); Lymphocytes Percent Auto 19.7 % (18.3-44.2); Mean Corpuscular HGB Conc 31.5 g/dl (32-36); Mean Corpuscular Hemoglobin 26.8 pg (26-34); Mean Corpuscular Volume 85.1 fl (80-100); Mean Platelet Volume 10.3 fl (7.4-10.4); Monocytes Absolute Auto 0.6 K/mm3 (0.1-0.6); Monocytes Percent Auto 11.9 % (2.6-8.5); Neutrophils Absolute Auto 3.4 K/mm3 (1.3-6.7); Neutrophils Percent Auto 65.9 % (45.5-73.1); Platelet Count Result 158 k/mm3 (150-375); Red Cell Distribution Width 13.1 % (11.5-14.5); White Blood Count 5.2 K/mm3 (4.5-10.0)
[2023-05-01 07:07] LABS: Alanine Aminotransferase 23 U/L (6-50); Albumin Level 3.7 g/dL (3.5-5.1); Alkaline Phosphatase 54 U/L (38-126); Anion Gap 11 mmol/L (8-16); Aspartate Amino Transferase 20 U/L (17-59); Bilirubin,Total 1.1 mg/dL (0.2-1.3); Blood Urea Nitrogen 7 mg/dL (9-20); Calcium 8.6 mg/dL (8.4-10.2); Carbon Dioxide 18 mmol/L (22-30); Chloride 106 mmol/L (98-107); Estimated CRCL calculation 101 ml/min; Estimated Glomerular Filt Rate > 60; Glucose 66 mg/dL (65-110); Magnesium 2.1 mg/dL (1.6-2.3); Potassium 3.6 mmol/L (3.4-5.0); Sodium 135 mmol/L (137-145)
[2023-05-01] MEDS: PANTOPRAZOLE SODIUM IV 40 MG VIAL IV PUSH (09:37)
[2023-05-01] MEDS: ONDANSETRON INJ 4 MG/2 ML VIAL IV PUSH ×2 (09:39→17:17)
[2023-05-01] MEDS: ACETAMINOPHEN 325 MG TABLET 650 MG PO ×2 (09:39→15:09)
--- NOTE | 2023-05-01 11:20 | PM.PNGS ---
Progress Note: A&P Assessment and Plan (1) Acute diverticulitis: Code(s): K57.92 - Diverticulitis of intestine, part unspecified, without perforation or abscess without bleeding Status: Acute Assessment and Plan: Abdominal pain continues to improve. Still has some mid to right lower quadrant tenderness on exam, but overall improved. He is afebrile and his white count remains normal. He had some nausea this morning that has improved with Zofran. Will stop his IV fluids and try advancing him to a low fiber diet. If he continues to improve and can tolerate a diet, then he could possibly be discharged home on oral antibiotics in the next few days. If he has more abdominal pain, becomes febrile, or is not improving as expected, then we could consider repeating a CT scan at that point. Continue to monitor. (2) Appendicitis: Code(s): K37 - Unspecified appendicitis Status: Acute Assessment and Plan: CT scan showed an appendix dilated to 9 mm with contrast material within the appendix, but no periappendiceal inflammation or appendicolith. Patient wished to continue with nonoperative treatment with IV antibiotics. See plan above. Plan I have discussed the patient's case and plan of care with Dr. Leonardo. Subjective Subjective Date/Time Seen: 05/01/23 11:20 Patient reports: feels better, pain is less, flatus, bowel movement, nausea and afebrile Interval history: Patient seen this morning. Complaints of a headache and some nausea this morning. He still feels bloated and reports poor appetite. His nausea improved after getting Zofran. He reports his abdominal pain continues to slightly improve daily. He feels less tender today. Afebrile overnight. He has not had any of the full liquids, as none of the food sounds good. He is drinking plenty of water. Review of Systems Review of Systems: All systems reviewed & are unremarkable except as noted in HPI and below Exam Const: General: comfortable and no acute distress Orientation/consciousness: patient oriented x3 GI: Inspection: non-distended GI Palp: Yes Soft to palpation, Yes Tenderness to palpation present (GI) (can tender in the suprapubic area and RLQ), Yes Guarding due to palpation present (GI) (with palpation in suprapubic area and RLQ) and Yes Rebound tenderness present (some rebound tenderness in the lower abdomen) Auscultation: normal bowel sounds Objective Data Vital Signs Vital Signs: Vital Signs - 24 hr 04/30/23 14:00 04/30/23 20:00 04/30/23 22:00 Temperature 98.2 F 99.0 F Pulse Rate 83 66 Respiratory Rate 18 18 Blood Pressure 129/87 138/86 Pulse Oximetry 98 98 Oxygen Delivery Room Air 05/01/23 05:45 05/01/23 09:35 Temperature 98.4 F Pulse Rate 84 Respiratory Rate 18 Blood Pressure 139/85 Pulse Oximetry 97 Oxygen Delivery Room Air Intake/Output Intake/Output: Intake & Output 04/28/23 04/29/23 04/30/23 05/01/23 23:59 23:59 23:59 23:59 Intake Total 1450 3536 2786 600 Output Total 875 400 Balance 575 3136 2786 600 Meds/Results Medications: Active Medications Generic Name Dose Route Start Last Admin Trade Name Freq PRN Reason Stop Dose Admin Acetaminophen 650 mg 04/30/23 17:23 05/01/23 09:39 Acetaminophen 325 Mg Tablet PO 650 mg Q6H PRN Administration Mild Pain (1-3) or Fever Hydrocodone Bitart/Acetaminophen 1 tab 04/30/23 13:06 Hydrocodone/Acetaminophen (*Crx) 5-325 Mg Tablet PO Q4H PRN Pain Rated 4-6 Hydrocodone Bitart/Acetaminophen 1 tab 04/30/23 13:06 Hydrocodone/Acetaminophen (*Crx) 7.5-325 Mg Tablet PO Q4H PRN Pain Rated 7-10 Hydromorphone HCl 1 mg 04/28/23 14:50 04/29/23 23:53 Hydromorphone Hcl Inj (*Crx) 1 Mg/Ml Syr IV PUSH 1 mg Q2H PRN Administration Pain Rated 7-10 Piperacillin/Tazobactam/Dextrose 3.375 gm in 50 mls @ 100 mls/hr 04/28/23 12:00 05/01/23 06:30 Zosyn 3.375 Gm/Ns 50 Ml IVPB Infused Q6HR
[2023-05-01 13:44] VITALS: BP 147/75; PULSE 78; RESP 20; TEMP 36.9; O2SAT 96
--- NOTE | 2023-05-01 15:07 | PM.IMPN ---
Progress Note: A&P Assessment and Plan (1) Acute diverticulitis: Code(s): K57.92 - Diverticulitis of intestine, part unspecified, without perforation or abscess without bleeding Status: Acute (2) Appendicitis: Code(s): K37 - Unspecified appendicitis Status: Acute (3) Colonic diverticular abscess: Code(s): K57.20 - Diverticulitis of large intestine with perforation and abscess without bleeding Status: Acute Plan Acute sigmoid diverticulitis with peridiverticular abscess IV antibiotics with Zosyn and metronidazole. NPO. Diet per General surgery Possible acute appendicitis with appendix thickened measuring 9 mm. Suspect acute appendicitis. Discussed with General surgery. continues to improve on clear liquid diet . Further advanced folic and now to low-fiber diet. Monitor on IV antibiotics year History of diverticulitis in the past status post surgery June 2022 DVT prophylaxis SCDs Code status full code Subjective Date/time seen: 05/01/23 15:07 Interval history: feels okay. Has not tried his full liquid yet. Abdominal pain is much better. No nausea or vomiting. Remains afebrile. Review of Systems Review of Systems: All systems reviewed & are unremarkable except as noted in HPI and below Exam Narrative: GENERAL: Well-appearing, well-nourished, and in acute distress. HEAD: Normocephalic, atraumatic. EYES: PERRLA and EOMI. ENT: Nares clear, no rhinorrhea or epistaxis.? Mucous membranes moist. NECK: Supple. CHEST: Clear to auscultation.? No respiratory distress. HEART: Regular rate and rhythm.? No murmur heard.? Normal peripheral pulses. ABDOMEN: Soft, Very mild tenderness to palpation throughout the abdomen in the right lower quadrant and suprapubic., EXTREMITIES: Normal range of motion.? No edema. SKIN: Warm, dry, no rash. NEURO: No focal deficits.? Alert and oriented x3. PSYCH: Normal mood and affect Objective Data Vital Signs Vital Signs: Vital Signs - 24 hr 04/30/23 20:00 04/30/23 22:00 05/01/23 05:45 Temperature 99.0 F 98.4 F Pulse Rate 66 84 Respiratory Rate 18 18 Blood Pressure 138/86 139/85 Pulse Oximetry 98 97 Oxygen Delivery Room Air 05/01/23 09:35 05/01/23 13:44 Temperature 98.5 F Pulse Rate 78 Respiratory Rate 20 Blood Pressure 147/75 H Pulse Oximetry 96 Oxygen Delivery Room Air Intake/Output Intake/Output: Intake & Output 04/28/23 04/29/23 04/30/23 05/01/23 23:59 23:59 23:59 23:59 Intake Total 1450 3536 2786 1130 Output Total 875 400 Balance 575 3136 2786 1130 Meds/Results Medications: Active Medications Generic Name Dose Route Start Last Admin Trade Name Freq PRN Reason Stop Dose Admin Acetaminophen 650 mg 04/30/23 17:23 05/01/23 09:39 Acetaminophen 325 Mg Tablet PO 650 mg Q6H PRN Administration Mild Pain (1-3) or Fever Hydrocodone Bitart/Acetaminophen 1 tab 04/30/23 13:06 Hydrocodone/Acetaminophen (*Crx) 5-325 Mg Tablet PO Q4H PRN Pain Rated 4-6 Hydrocodone Bitart/Acetaminophen 1 tab 04/30/23 13:06 Hydrocodone/Acetaminophen (*Crx) 7.5-325 Mg Tablet PO Q4H PRN Pain Rated 7-10 Hydromorphone HCl 1 mg 04/28/23 14:50 04/29/23 23:53 Hydromorphone Hcl Inj (*Crx) 1 Mg/Ml Syr IV PUSH 1 mg Q2H PRN Administration Pain Rated 7-10 Piperacillin/Tazobactam/Dextrose 3.375 gm in 50 mls @ 100 mls/hr 04/28/23 12:00 05/01/23 13:00 Zosyn 3.375 Gm/Ns 50 Ml IVPB Infused Q6HR [facility] Infusion Metronidazole 500 mg 04/30/23 22:00 05/01/23 13:51 Metronidazole 250 Mg Tablet PO 500 mg Q8HR [facility] Administration Ondansetron HCl 4 mg 04/28/23 06:19 05/01/23 09:39 Ondansetron Inj 4 Mg/2 Ml Vial IV PUSH 4 mg Q4H PRN Administration Nausea Pantoprazole Sodium 40 mg 04/28/23 12:45 05/01/23 09:37 Pantoprazole Sodium Iv 40 Mg Vial IV PUSH 40 mg QAM L[facility]LEY Administration Radiology Results: ITS Impressions Abdomen/Pe
[2023-05-01] MEDS: HYDROcodone/acetaminophen (*CRX) 5-325 MG TABLET 1 TAB PO (17:15)
[2023-05-01] MEDS: MEPERIDINE HCL INJ (*CRX) 50 MG/ML AMPUL 25 MG IV PUSH (18:57)
[2023-05-01] MEDS: FUROSEMIDE INJ 40 MG/4 ML VIAL IV PUSH (20:56)
[2023-05-01] MEDS: methocarbamoL 750 MG TABLET PO (20:56)
[2023-05-01 21:58] VITALS: BP 148/94; PULSE 84; RESP 20; TEMP 37.1; O2SAT 100
[2023-05-02] MEDS: PIPERACILLN/TAZ 3.375GM/NS50ML 3.375 GM/50 ML BAG IVPB ×3 (00:09→11:13)
[2023-05-02] MEDS: HYDROcodone/acetaminophen (*CRX) 7.5-325 MG TABLET 1 TAB PO ×3 (00:46→18:30)
[2023-05-02] MEDS: IMIPRAMINE HCL 25 MG TABLET 75 MG PO (01:18)
[2023-05-02] MEDS: MEPERIDINE HCL INJ (*CRX) 50 MG/ML AMPUL 25 MG IV PUSH ×2 (05:30→11:13)
[2023-05-02] MEDS: metroNIDAZOLE 250 MG TABLET 500 MG PO (05:30)
[2023-05-02] MEDS: ONDANSETRON INJ 4 MG/2 ML VIAL IV PUSH ×2 (05:31→11:26)
[2023-05-02] MEDS: VERAPAMIL HCL 40 MG TABLET PO (05:45)
[2023-05-02 06:00] VITALS: BP 144/97; PULSE 100; RESP 20; TEMP 36.3; O2SAT 97
[2023-05-02 06:02] LABS: Hematocrit 50.9 % (42.0-52.0); Hemoglobin 16.2 g/dL (14.0-18.0); Mean Corpuscular HGB Conc 31.8 g/dl (32-36); Mean Corpuscular Hemoglobin 26.9 pg (26-34); Mean Corpuscular Volume 84.6 fl (80-100); Mean Platelet Volume 9.7 fl (7.4-10.4); Platelet Count Result 207 k/mm3 (150-375); Red Blood Count 6.02 M/mm3 (4.6-6.20); Red Cell Distribution Width 13.2 % (11.5-14.5); White Blood Count 8.7 K/mm3 (4.5-10.0)
[2023-05-02 06:15] LABS: Anion Gap 15 mmol/L (8-16); Blood Urea Nitrogen 8 mg/dL (9-20); Calcium 9.3 mg/dL (8.4-10.2); Carbon Dioxide 23 mmol/L (22-30); Chloride 99 mmol/L (98-107); Estimated CRCL calculation 85 ml/min; Estimated Glomerular Filt Rate > 60; Glucose 94 mg/dL (65-110); Potassium 3.8 mmol/L (3.4-5.0); Sodium 137 mmol/L (137-145)
[2023-05-02] MEDS: PANTOPRAZOLE SODIUM IV 40 MG VIAL IV PUSH (08:41)
[2023-05-02] MEDS: HYDROmorphone HCL INJ (*CRX) 1 MG/ML SYR IV PUSH (08:43)
[2023-05-02 11:15] VITALS: BP 150/99; PULSE 87
[2023-05-02 11:50] VITALS: O2SAT 99
--- NOTE | 2023-05-02 13:52 | PM.PNGS ---
Progress Note: A&P Assessment and Plan (1) Acute diverticulitis: Code(s): K57.92 - Diverticulitis of intestine, part unspecified, without perforation or abscess without bleeding Status: Acute Assessment and Plan: Main complaint today is headache with nausea/vomiting. He is moving his bowels and his abdominal pain and tenderness has nearly resolved. He is afebrile and his WBC count remains normal. He is getting a CT head today for his severe headache and being medically treated for this. From a surgical standpoint, he would be stable for discharge and transition to oral antibiotics once he is medically stable. We will plan to have him follow-up with Dr. Leonardo in 1-2 weeks after discharge. He should have another 10 days of oral antibiotics once discharged. (2) Appendicitis: Code(s): K37 - Unspecified appendicitis Status: Acute Assessment and Plan: CT scan showed an appendix dilated to 9 mm with contrast material within the appendix, but no periappendiceal inflammation or appendicolith. Patient improved with conservative treatment with IV antibiotics. Abdominal pain and tenderness nearly resolved. See plan above. Plan I have discussed the patient's case and plan of care with Dr. Leonardo. Subjective Subjective Date/Time Seen: 05/02/23 13:52 Patient reports: no new complaints, flatus, bowel movement, nausea, vomiting and afebrile Interval history: Patient seen today and main complaint is a headache. His headache is much worse today. He did try a low fiber diet last night for dinner and has had nausea and vomiting through the night that he feels is associated with his headache. He had a BM this morning. He denies hx of migraines. Denies any abdominal pain at this time and feels this continues to significantly improve. Exam Const: General: uncomfortable Orientation/consciousness: patient oriented x3 GI: Inspection: non-distended GI Palp: Yes Soft to palpation, Yes Tenderness to palpation present (GI) (very mild tenderness in the RLQ, improved), No Guarding due to palpation present (GI) and No Rebound tenderness present Auscultation: normal bowel sounds Objective Data Vital Signs Vital Signs: Vital Signs - 24 hr 05/01/23 21:58 05/01/23 20:00 05/02/23 06:00 Temperature 98.8 F 97.3 F L Pulse Rate 84 100 Respiratory Rate 20 20 Blood Pressure 148/94 H 144/97 H Pulse Oximetry 100 97 Oxygen Delivery Room Air Oxygen Flow Rate 05/02/23 08:00 05/02/23 11:15 05/02/23 11:50 Temperature Pulse Rate 87 Respiratory Rate Blood Pressure 150/99 H Pulse Oximetry 99 Oxygen Delivery Room Air Nasal Cannula Oxygen Flow Rate 1 05/02/23 12:45 Temperature Pulse Rate Respiratory Rate Blood Pressure Pulse Oximetry Oxygen Delivery Room Air Oxygen Flow Rate Intake/Output Intake/Output: Intake & Output 04/29/23 04/30/23 05/01/23 05/02/23 23:59 23:59 23:59 23:59 Intake Total 3536 2786 2220 490 Output Total 400 2100 450 Balance 3136 2786 120 40 Meds/Results Medications: Active Medications Generic Name Dose Route Start Last Admin Trade Name Freq PRN Reason Stop Dose Admin Acetaminophen 650 mg 04/30/23 17:23 05/01/23 15:09 Acetaminophen 325 Mg Tablet PO 650 mg Q6H PRN Administration Mild Pain (1-3) or Fever Hydrocodone Bitart/Acetaminophen 1 tab 04/30/23 13:06 05/01/23 17:15 Hydrocodone/Acetaminophen (*Crx) 5-325 Mg Tablet PO 1 tab Q4H PRN Administration Pain Rated 4-6 Hydrocodone Bitart/Acetaminophen 1 tab 04/30/23 13:06 05/02/23 00:46 Hydrocodone/Acetaminophen (*Crx) 7.5-325 Mg Tablet PO 1 tab Q4H PRN Administration Pain Rated 7-10 Hydromorphone HCl 1 mg 04/28/23 14:50 05/02/23 08:43 Hydromorphone Hcl Inj (*Crx) 1 Mg/Ml Syr IV PUSH 1 mg Q2H PRN Administration Pain Rated 7-10 Dextrose/Sodium Chloride 1,000 mls @ 100 mls/hr 05/02/23 13:50 Dextrose 5% Sodium Chloride 0.9% IV CONT
[2023-05-02 14:00] VITALS: BP 153/96; PULSE 89; RESP 16; TEMP 36.1; O2SAT 97
--- NOTE | 2023-05-02 14:07 | PC.NURSE ---
To CT per wheelchair.
--- NOTE | 2023-05-02 14:18 | PC.NURSE ---
Return from CT per wheelchair.
[2023-05-02] MEDS: DEXTROSE 5%/0.9% SOD CHL 1,000 ML 100 ML IV CONT ×2 (14:20→23:38)
[2023-05-02] MEDS: METOCLOPRAMIDE HCL INJ 10 MG/2 ML VIAL 5 MG IV PUSH (14:29)
--- NOTE | 2023-05-02 18:35 | PM.IMPN ---
Progress Note: A&P Assessment and Plan (1) Acute diverticulitis: Code(s): K57.92 - Diverticulitis of intestine, part unspecified, without perforation or abscess without bleeding Status: Acute (2) Appendicitis: Code(s): K37 - Unspecified appendicitis Status: Acute (3) Headache: Code(s): R51.9 - Headache, unspecified Status: Acute Plan plan to d/c on oral abx for improving diverticulitis, however developed severe headache. ct head negative. stopped iv abx and he previosuly had headache with abx. ctm for resolution. Subjective Date/time seen: 05/02/23 18:35 Interval history: no chest pain, sob or abdominal pain, is tolerating diet. complains of 10/10 band like headache last night, now with 7/10 pain and associte nausea and vomiting Review of Systems Review of Systems: All systems reviewed & are unremarkable except as noted in HPI and below Exam Const: General: comfortable HENMT: Mouth: Yes moist mucous membranes Eyes: General: appearance normal, both eyes and all related structures Pupils: Equal, round and reactive pupils present Neck: Neck: supple Resp: Effort & Inspection: normal respiratory effort Auscultation: clear to auscultation bilaterally Cardio: Rate: regular rate Rhythm: regular rhythm GI: GI Palp: Yes Soft to palpation and No Tenderness to palpation present (GI) Auscultation: normal bowel sounds Neuro: Speech: normal speech Motor exam (neuro): 5/5 motor strength present throughout Extrem: General: no edema Psych: Mental Status: mental status grossly normal Objective Data Vital Signs Vital Signs: Vital Signs - 24 hr 05/01/23 21:58 05/01/23 20:00 05/02/23 06:00 Temperature 98.8 F 97.3 F L Pulse Rate 84 100 Respiratory Rate 20 20 Blood Pressure 148/94 H 144/97 H Pulse Oximetry 100 97 Oxygen Delivery Room Air Oxygen Flow Rate 05/02/23 08:00 05/02/23 11:15 05/02/23 11:50 Temperature Pulse Rate 87 Respiratory Rate Blood Pressure 150/99 H Pulse Oximetry 99 Oxygen Delivery Room Air Nasal Cannula Oxygen Flow Rate 1 05/02/23 12:45 05/02/23 14:00 Temperature 96.9 F L Pulse Rate 89 Respiratory Rate 16 Blood Pressure 153/96 H Pulse Oximetry 97 Oxygen Delivery Room Air Oxygen Flow Rate Intake/Output Intake/Output: Intake & Output 04/29/23 04/30/23 05/01/23 05/02/23 23:59 23:59 23:59 23:59 Intake Total 3536 2786 2220 730 Output Total 400 2100 850 Balance 3136 2786 120 -120 Meds/Results Medications: Active Medications Generic Name Dose Route Start Last Admin Trade Name Freq PRN Reason Stop Dose Admin Acetaminophen 650 mg 04/30/23 17:23 05/01/23 15:09 Acetaminophen 325 Mg Tablet PO 650 mg Q6H PRN Administration Mild Pain (1-3) or Fever Hydrocodone Bitart/Acetaminophen 1 tab 04/30/23 13:06 05/01/23 17:15 Hydrocodone/Acetaminophen (*Crx) 5-325 Mg Tablet PO 1 tab Q4H PRN Administration Pain Rated 4-6 Hydrocodone Bitart/Acetaminophen 1 tab 04/30/23 13:06 05/02/23 18:30 Hydrocodone/Acetaminophen (*Crx) 7.5-325 Mg Tablet PO 1 tab Q4H PRN Administration Pain Rated 7-10 Hydromorphone HCl 1 mg 04/28/23 14:50 05/02/23 08:43 Hydromorphone Hcl Inj (*Crx) 1 Mg/Ml Syr IV PUSH 1 mg Q2H PRN Administration Pain Rated 7-10 Dextrose/Sodium Chloride 1,000 mls @ 100 mls/hr 05/02/23 13:50 05/02/23 14:20 Dextrose 5% Sodium Chloride 0.9% IV CONT 100 mls/hr .Q10H L[facility] Administration Meperidine HCl 25 mg 05/01/23 18:21 05/02/23 11:13 Meperidine Hcl Inj (*Crx) 50 Mg/Ml Ampul IV PUSH 25 mg Q6H PRN Administration headache Metoclopramide HCl 5 mg 05/02/23 14:23 05/02/23 14:29 Metoclopramide Hcl Inj 10 Mg/2 Ml Vial IV PUSH 5 mg Q6HR PRN Administration Nausea And Vomiting Ondansetron HCl 4 mg 04/28/23 06:19 05/02/23 11:26 Ondansetron Inj 4 Mg/2 Ml Vial IV PUSH 4 mg Q4H PRN Administration Nausea
[2023-05-02 20:56] VITALS: BP 135/82; PULSE 78; RESP 16; TEMP 36.6; O2SAT 97
[2023-05-02] MEDS: KETOROLAC 30 MG/ML VIAL (*BKC) IV PUSH (23:41)
[2023-05-03 04:52] VITALS: BP 136/90; PULSE 74; RESP 16; TEMP 36.4; O2SAT 96
[2023-05-03 06:25] LABS: Hematocrit 48.5 % (42.0-52.0); Hemoglobin 15.1 g/dL (14.0-18.0); Mean Corpuscular HGB Conc 31.1 g/dl (32-36); Mean Corpuscular Hemoglobin 26.4 pg (26-34); Mean Corpuscular Volume 84.8 fl (80-100); Mean Platelet Volume 9.8 fl (7.4-10.4); Platelet Count Result 205 k/mm3 (150-375); Red Blood Count 5.72 M/mm3 (4.6-6.20); Red Cell Distribution Width 13.1 % (11.5-14.5); White Blood Count 6.3 K/mm3 (4.5-10.0)
[2023-05-03 06:37] LABS: Anion Gap 5 mmol/L (8-16); Blood Urea Nitrogen 9 mg/dL (9-20); Calcium 8.8 mg/dL (8.4-10.2); Carbon Dioxide 31 mmol/L (22-30); Chloride 102 mmol/L (98-107); Estimated CRCL calculation 101 ml/min; Estimated Glomerular Filt Rate > 60; Glucose 98 mg/dL (65-110); Magnesium 2.1 mg/dL (1.6-2.3); Potassium 3.6 mmol/L (3.4-5.0); Sodium 138 mmol/L (137-145)
[2023-05-03 08:00] VITALS: O2SAT 96
[2023-05-03] MEDS: PANTOPRAZOLE SODIUM IV 40 MG VIAL IV PUSH (08:32)
--- NOTE | 2023-05-03 09:56 | PM.DS ---
DS: Admitting Diagnosis Discharge Date 05/03/23 Admitting Diagnosis diverticulitis DS: Discharge Diagnosis Discharge Diagnosis (1) Acute diverticulitis: Code(s): K57.92 - Diverticulitis of intestine, part unspecified, without perforation or abscess without bleeding Status: Acute (2) Appendicitis: Code(s): K37 - Unspecified appendicitis Status: Acute (3) Colonic diverticular abscess: Code(s): K57.20 - Diverticulitis of large intestine with perforation and abscess without bleeding Status: Acute (4) Headache: Code(s): R51.9 - Headache, unspecified Status: Acute DS: Summary Hospital Course Hospital Course: 43M w/ PMH diverticulitis w/ h/o colectomy presented with abdominal pain. He was dx with diverticulitis w/ possible peridiverticular abscess and appendicitis and treated conservatively with abx. He developed a headache which subsided on d/c of IV abx. On 05/03 he is w/o abdominal pain and is being dc'ed in stable condition with 3 more days of flagyl and cipro to complete a 10 day course. He is to follow up with Dr. Leonardo in 1 week. He also has an appt on 06/30 with his colorectal surgeon at [place]. Time Spent with Patient Time attestation: Total time spent providing and/or coordinating discharge services: Exam Const: General: cooperative and no acute distress Resp: Effort & Inspection: normal respiratory effort Auscultation: clear to auscultation bilaterally Cardio: Rate: regular rate Rhythm: regular rhythm Heart sounds: S1 normal heart sound present and S2 normal heart sound present GI: GI Palp: No abdominal tenderness Auscultation: normal bowel sounds DS: Data Data Completed and Pending Labs on day of discharge: Labs from last 24 hours 05/03/23 05:42 WBC 6.3 RBC 5.72 Hgb 15.1 Hct 48.5 MCV 84.8 MCH 26.4 MCHC 31.1 L RDW 13.1 Plt Count 205 MPV 9.8 Sodium 138 Potassium 3.6 Chloride 102 Carbon Dioxide 31 H Anion Gap 5 L BUN 9 Creatinine 1.00 Estim Creat Clear Calc 101 Estimated GFR > 60 Glucose 98 Calcium 8.8 Magnesium 2.1 Preliminary micro results at discharge 04/28/23 06:57 Blood Culture - Preliminary Blood 04/28/23 06:29 Blood Culture - Preliminary Blood Discharge Plan Discharge Attending physician on discharge: Gunjan Rizvi Consulting providers: Waldo Leonardo Discharging Clinician: Gunjan Rizvi Patient Disposition: Home, Self-Care Activity: may shower Diet: as tolerated and low fiber Discharge Instructions: General surgery instructions: Follow-up with Dr. Leonardo in 1-2 weeks. 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 If you develop abdominal pain, fever, or vomiting, then return to the ER or call your surgeon. Continue a low fiber diet until follow-up with your surgeon. Patient Instructions: Antibiotic Form Stand Alone Forms: General Discharge Information Follow-up/Referrals: Waldo Leonardo MD [Physician] - 1 Week Discharge Medications: New metronidazole 500 mg tablet 500 mg PO Q8H 3 Days Qty: 9 0RF ciprofloxacin HCl 500 mg tablet 500 mg PO Q12H 3 Days Qty: 6 0RF Continued omeprazole 40 mg capsule,delayed release(DR/EC) 40 mg PO DAILY acetaminophen [Pain Reliever ES(acetaminophn)] 500 mg tablet 500 mg PO PRN PRN (Reason: Pain (Scale Score 1-3)) ibuprofen 600 mg tablet 600 mg PO PRN PRN (Reason: Pain (Scale Score 1-3)) olmesartan 20 mg Tablet 20 mg PO DAILY Discontinued meloxicam 15 mg tablet 15 mg PO DAILY Date of admission: 04/30/23 14:16 Primary Care Provider: PHYSICIAN NOT ON STAFF,NONSTAFF Admitting Provider: Bruno De Paz V. Attending physician on admission: Bruno De Paz V. Condition: Stable
== END 2023-05-03 11:10 | disposition home or self-care (01) | DRG 392 ==
LOC: ANHED 07:12 → ANH3MEDSUR 07:13
PROVIDERS: Internal Medicine; Nurse Practitioner Family; Surgery; Admitting Provider Internal Medicine; Emergency Provider Emergency Medicine; Visit Provider General Practice
DX: K57.20 Diverticulitis of large intestine with perforation and abscess without bleeding (principal); K35.80 Unspecified acute appendicitis; R51.9 Headache, unspecified; Z87.891 Personal history of nicotine dependence
CPT/HCPCS: 36415; 70450; 74177; 80048; 80053; 81003; 83605; 83690; 83735; 85025; 85027; 85055; 87040; 96361; 96365; 96366; 96367; 96375; 96376; 99285; A9270; C9113; G0378; J1170; J1836; J1885; J1940; J2175; J2270; J2405; J2543; J2765; J7030; J7042; Q9967